=== PATIENT | male | born 1950 | race Two or more races ===

== ENCOUNTER 2018-02-26 12:30 | Inpatient (IN) | payer OTHER ==
[~2018-02-26] VITALS: Ht 180.3 cm; Wt 89.8 kg
[2018-03-12] MEDS ORDERED: DUI500 PO (11:13)
[2018-03-12] MEDS ORDERED: ELIQUIS2.5 MG PO (11:13)
[2018-03-12] MEDS ORDERED: PERCOCET 5-3251 EACH PO (11:13)
== END 2018-03-12 17:33 | DRG 470 ==
LOC: O/R 03-10 05:31 → SURG 03-10 05:31 → RECOVERY 03-10 12:00 → SURG 03-10 14:59
PROVIDERS: Orthopaedic Surgery
PROC: 0MNP0ZZ Release Left Knee Bursa and Ligament, Open Approach (ICD-10-PCS; 2018-03-10)
PROC: 0SRD0J9 Replacement of Left Knee Joint with Synthetic Substitute, Cemented, Open Approach (ICD-10-PCS; principal; 2018-03-10 12:00)
DX: M17.12 Unilateral primary osteoarthritis, left knee (principal); D62 Acute posthemorrhagic anemia; I10 Essential (primary) hypertension; E11.9 Type 2 diabetes mellitus without complications; M22.12 Recurrent subluxation of patella, left knee